=== PATIENT | male | born 1930 | race Two or more races ===

== ENCOUNTER → 2017-08-27 | Outpatient (CLI) | payer MEDICARE, OTHER ==
[~2017-08-27] MED LIST: ACIPHX20PT PO; ASPI-1441 PO; ASPI-715 PO; ASPI81TA94 PO; BETA1TAB PO; CEP500 PO; HOME OXYGEN; IBUP600T22 PO; LOR5 PO; LORA0.5P PO; METO25TA93 PO; NAPR220C12 PO; NIT4 SL; OCCUVITE; OMEG-11 PO; ONDA4TAB PO; ONDA4TAB9 PO; PHEN240S3 PO; PRE20 PO; RABE20TA33 PO; SIMV-42 PO; VIT1CAPS33 PO; VIT1CAPS34 PO
[2017-08-27 15:41] LABS: PLATELET COUNT, AUTOMATED 230 K/uL (150-450)
== END ==
LOC: LAB 14:36
PROVIDERS: ATTEND Dermatology MOHS-Micrographic Surgery
DX: L30.9 Dermatitis, unspecified (principal); Z79.899 Other long term (current) drug therapy
CPT/HCPCS: 36415; 82040; 82247; 82310; 82374; 82435; 82565; 82947; 84075; 84132; 84155; 84295; 84450; 84460; 84520; 85025

== ENCOUNTER 2017-12-10 10:05 | Emergency (ER) | payer MEDICARE, OTHER ==
--- NOTE | 2017-12-10 10:19 | ER Report ---
History and Physical Time Seen By MD: 10:17 Hx. of Stated Complaint: Patient reports feeling weak and dizzy anytime he tries to do anything. Also short of breath and "no strength". HPI/ROS CHIEF COMPLAINT: general weakness and dizziness HISTORY OF PRESENT ILLNESS: This is an 87 year old male. He dropped his off at the cancer center for a treatment, and had severe dizziness and weakness where he thought he might pass out. He has had this in the past, unknown cause. He has been feeling well today, no recent illness. He has no chest pain or palpitations. He has no vertigo. No shortness of breath or cough. He has no headache, no vision changes today, and no tinnitus or hearing changes. Dizziness worsens with position change. No fevers or chills. Allergies: Uncoded Allergies: metroprolol (Adverse Reaction, Unknown, 11/14/15) Home Meds Reported Medications Beta-Carotene(A) W-C & E/Min (ICAPS AREDS FORMULA TABLET) 1 Each Tablet.er, 1 EACH PO QDAY 03/01/17 Aspirin (ASPIRIN) 81 Mg Tab.chew, 81 MG PO QDAY, TAB.CHEW 03/01/17 Discontinued Reported Medications Rabeprazole Sodium (ACIPHEX) 20 Mg Tablet.dr, 20 MG PO PRN 08/10/17 Naproxen Sodium (ALEVE) Unknown Strength Capsule, 2 TAB PO QAM - PRN, CAPSULE 03/01/17 Reviewed Nurses Notes: Yes Hx Smoking: No Smoking Status: Unknown if Ever Smoked Exposure to Second Hand Smoke?: Yes Hx Substance Use Disorder: No Hx Alcohol Use: No Constitutional Vital Sign - Last 24 Hours 12/10/17 12/10/17 12/10/17 12/10/17 10:09 10:30 10:45 10:51 Temp 97.8 Pulse 70 60 59 58 Resp 16 30 32 B/P (MAP) 184/114 142/81 (101) Pulse Ox 93 96 96 O2 Delivery Room Air 12/10/17 12/10/17 12/10/17 12/10/17 10:53 10:57 11:00 11:30 Pulse 66 70 63 58 Resp 19 10 B/P (MAP) 148/89 (108) 158/99 (118) Pulse Ox 96 93 12/10/17 12/10/17 12/10/17 11:45 12:00 12:15 Pulse 62 60 60 Resp 13 18 Pulse Ox 91 92 93 Physical Exam General Appearance: The patient is alert. No acute distress. Eyes: Pupils are equal, round. Reactive to light. No pallor, injection or icterus. Extraocular movements are intact. No nystagmus. ENT: Mucous membranes are moist. Normal oral mucosa. Posterior oropharynx is normal. Normal tympanic membranes and canals. Neck: Supple and non tender. No lymphadenopathy. Respiratory: Lungs are clear to auscultation. There are no retractions or accessory muscle use. Cardiovascular: Regular rate and rhythm. No murmurs, gallops or rubs. Normal capillary refill. No edema. No carotid bruits. Gastrointestinal: Abdomen is soft and non tender. Nondistended. No rebound or guarding. No masses or organomegaly. Normal active bowel sounds. No costovertebral angle tenderness with percussion. Neurological: Alert and oriented x3. Cranial nerves II through XII show no acute deficits on my exam. No focal neurologic deficits in the extremities. Skin: Warm and dry. No rashes. Musculoskeletal: Extremities are nontender. Full range of motion. No tenderness in palpation of the cervical, thoracic and lumbar spine. DIFFERENTIAL DIAGNOSIS: After history and physical exam, differential diagnosis was considered for nonspecific weakness and dizziness. Medical Decision Making Data Points Result Diagram: 12/10/17 1024 12/10/17 1024 Laboratory Hematology Test 12/10/17 10:24 Red Blood Count 5.69 M/uL (4.00-5.60) Mean Corpuscular Volume 91.5 fL (80.0-96.0) Mean Corpuscular Hemoglobin 31.2 pg (26.0-33.0) Mean Corpuscular Hemoglobin Concent 34.1 g/dL (32.0-36.0) Red Cell Distribution Width 13.4 % (11.5-14.5) Mean Platelet Volume 8.9 fL (7.2-11.1) Neutrophils (%) (Auto) 67.0 % (39.4-72.5) Lymphocytes (%) (Auto) 19.7 % (17.6-49.6) Monocytes (%) (Auto) 10.7 % (4.1-12.4) Eosinophils (%) (Auto) 2.2 % (0.4-6.7) Basophils (%) (Auto) 0.4 % (0.3-1.4) Nucleated RBC Relative Count (auto) 0.5 /100WBC Neutrophils # (Auto) 4.6 K/uL (2.0-7.4) Lymphocytes # (Auto) 1.3 K/uL (1.3-3.6) Monocytes # (Auto) 0.7 K/uL (0.3-1.0) Eosinophils # (Auto) 0.2 K/uL (0.0-0.5) Basophils # (Auto) 0.0 K/uL (0.0-0.1) Nucleated RBC Absolute Count (auto) 0.03 K/uL Peripheral Blood Smear No Y/N Sodium Level 139 mmol/L (137-145) Potassium Level 4.4 mmol/L (3.5-5.0) Chloride Level 103 mmol/L (98-107) Carbon Dioxide Level 22 mmol/L (22-30) Blood Urea Nitrogen 22 mg/dl (9-21) Creatinine 1.00 mg/dl (0.66-1.25) Glomerular Filtration Rate Calc > 60.0 Random Glucose 145 mg/dl (75-110) Calcium Level 9.4 mg/dl (8.4-10.2) Magnesium Level 2.2 mg/dl (1.7-2.2) Total Bilirubin 0.9 mg/dl (0.2-1.3) Aspartate Amino Transf (AST/SGOT) 40 U/L (0-35) Alanine Aminotransferase (ALT/SGPT) 60 U/L (0-56) Alkaline Phosphatase 72 U/L (0-126) Troponin I < 0.012 ng/ml B-Type Natriuretic Peptide < 5 pg/ml (0-100) Total Protein 6.7 gm/dl (6.3-8.2) Albumin 4.0 g/dl (3.5-5.0) Chemistry Test 12/10/17 10:24 White Blood Count 6.9 k/uL (4.5-11.0) Red Blood Count 5.69 M/uL (4.00-5.60) Hemoglobin 17.8 g/dL (14.0-18.0) Hematocrit 52.1 % (42.0-52.0) Mean Corpuscular Volume 91.5 fL (80.0-96.0) Mean Corpuscular Hemoglobin 31.2 pg (26.0-33.0) Mean Corpuscular Hemoglobin Concent 34.1 g/dL (32.0-36.0) Red Cell Distribution Width 13.4 % (11.5-14.5) Platelet Count 199 K/uL (150-450) Mean Platelet Volume 8.9 fL (7.2-11.1) Neutrophils (%) (Auto) 67.0 % (39.4-72.5) Lymphocytes (%) (Auto) 19.7 % (17.6-49.6) Monocytes (%) (Auto) 10.7 % (4.1-12.4) Eosinophils (%) (Auto) 2.2 % (0.4-6.7) Basophils (%) (Auto) 0.4 % (0.3-1.4) Nucleated RBC Relative Count (auto) 0.5 /100WBC Neutrophils # (Auto) 4.6 K/uL (2.0-7.4) Lymphocytes # (Auto) 1.3 K/uL (1.3-3.6) Monocytes # (Auto) 0.7 K/uL (0.3-1.0) Eosinophils # (Auto) 0.2 K/uL (0.0-0.5) Basophils # (Auto) 0.0 K/uL (0.0-0.1) Nucleated RBC Absolute Count (auto) 0.03 K/uL Peripheral Blood Smear No Y/N Glomerular Filtration Rate Calc > 60.0 Calcium Level 9.4 mg/dl (8.4-10.2) Magnesium Level 2.2 mg/dl (1.7-2.2) Total Bilirubin 0.9 mg/dl (0.2-1.3) Aspartate Amino Transf (AST/SGOT) 40 U/L (0-35) Alanine Aminotransferase (ALT/SGPT) 60 U/L (0-56) Alkaline Phosphatase 72 U/L (0-126) Troponin I < 0.012 ng/ml B-Type Natriuretic Peptide < 5 pg/ml (0-100) Total Protein 6.7 gm/dl (6.3-8.2) Albumin 4.0 g/dl (3.5-5.0) EKG/Imaging EKG Interpretation 12 lead EKG: Rhythm: normal sinus rhythm, rate 64 [place]: normal QRS: normal ST segments: normal Imaging Exam type: CHEST PA AND LAT History: Weakness, elevated blood pressure and shortness of breath Comparison: January 19, 2017. Findings: The lungs are free of acute effusions, infiltrates or edema. There is no evidence of pneumothorax or pneumomediastinum. The cardiac silhouette is normal in size. The trachea is in midline. IMPRESSION: 1. No acute cardiac pulmonary process is seen Report Dictated By: Ana Price MD at 12/10/2017 11:34 AM EXAMINATION: CT head without IV contrast HISTORY: Weakness, elevated blood pressure. COMPARISON: CT head from 01/19/2017. TECHNIQUE: Contiguous axial images were obtained from the skull base to the vertex without intravenous contrast. Sagittal and coronal reformatted images are also submitted. One of the following dose optimization techniques was utilized in the performance of this exam: Automated exposure control; adjustment of the mA and/ or kV according to the patient's size; or use of an iterative reconstruction technique. Specific details can be referenced in the facility's radiology CT exam operational policy. FINDINGS: Brain volume: Mild generalized atrophy with associated concordant prominence of the ventricular system. Ventricles: Normal. Acute ischemic changes: None. Hemorrhage: None. Masses/edema: None. Cain-white: Negative. White matter: A few hypodensities in the deep white matter bilaterally. Vessels: Calcified plaque of both carotid siphons. Extra-axial: Negative. Calvarium/scalp: Negative. Skull base/visualized face: Negative. Visualized sinuses/orbits: Previous lens surgery on the left. IMPRESSION: 1. No intracranial mass lesion or hemorrhage. No CT evidence of acute infarct. 2. Mild nonspecific white matter disease is suspicious for chronic small vessel ischemia, and is unchanged. Report Dictated By: Martha Barnett MD at 12/10/2017 11:29 AM ED Course/Re-evaluation Clinical Indication for ER IV: Hydration, IV Access ED Course Labs and imaging and EKG unremarkable. Discussed all of this with the patient and family. See instructions below. Decision to Disposition Date: Dec 10, 2017 Decision to Disposition Time: 12:24 Depart Departure Latest Vital Signs Vital Signs Date Time Temp Pulse Resp B/P (MAP) Pulse Ox O2 Delivery O2 Flow Rate FiO2 12/10/17 12:15 60 93 12/10/17 12:00 18 12/10/17 10:57 158/99 (118) 12/10/17 10:09 97.8 Room Air Impression: Primary Impression: Weakness generalized Condition: Improved Disposition: HOME OR SELF-CARE Patient Instructions: Weakness (ED) Additional Instructions: We do not know why you are getting episodes of weakness and lightheadedness. When this happens, please try and drink a small bottle of Gatorade or other electrolyte drink to see if this helps. Follow-up with Dr. Snell about blood pressure. Follow-up with your school nurse for further questions regarding your heart. MARYLIN LOO MD Dec 10, 2017 10:18
--- NOTE | 2017-12-10 10:55 | EKG ---
[place] [facility] [place] NAME: JOSE ENRIQUE MOORE : [id number] MR: [id number] V: [id number] EXAM DATE: ORDERING PHYSICIAN: MARYLIN LOO TECHNOLOGIST: VIJI Martinez Reason : SOB Blood Pressure : / mmHG Vent. Rate : 064 BPM Atrial Rate : 064 BPM P-R Int : 164 ms QRS Dur : 086 ms QT Int : 408 ms P-R-T Axes : 046 005 029 degrees QTc Int : 420 ms Sinus rhythm Possible left atrial enlargement Possible previous inferior infarct Unusual R wave progression through anterior leads Nonspecific ST findings Abnormal ECG Confirmed by EV RAYA ([id number]) on 12/10/2017 12:53:33 PM Referred By: EZE Confirmed By:EV RAYA
[2017-12-10 10:57] VITALS: BP 158/99
[2017-12-10 10:58] LABS: PLATELET COUNT, AUTOMATED 199 K/uL (150-450)
--- NOTE | 2017-12-10 11:35 | RADIOLOGY IMAGING REPORT ---
FACILITY: [facility] - [place] PATIENT NAME: Murray Azevedo : 1930 MR: [id number] V: [id number] EXAM DATE: ORDERING PHYSICIAN: MARYLIN LOO TECHNOLOGIST: Location: [facility] [place] Patient: Murray Azevedo : 1930 Visit/Account:[id number] Date of Sevice: 12/10/2017 EXAMINATION: CT head without IV contrast HISTORY: Weakness, elevated blood pressure. COMPARISON: CT head from 01/19/2017. TECHNIQUE: Contiguous axial images were obtained from the skull base to the vertex without intraven ous contrast. Sagittal and coronal reformatted images are also submitted. One of the following dose optimization techniques was utilized in the performance of this exam: Autom ated exposure control; adjustment of the mA and/or kV according to the patient's size; or use of an i terative reconstruction technique. Specific details can be referenced in the facility's radiology C T exam operational policy. FINDINGS: Brain volume: Mild generalized atrophy with associated concordant prominence of the ventricular syst em. Ventricles: Normal. Acute ischemic changes: None. Hemorrhage: None. Masses/edema: None. Cain-white: Negative. White matter: A few hypodensities in the deep white matter bilaterally. Vessels: Calcified plaque of both carotid siphons. Extra-axial: Negative. Calvarium/scalp: Negative. Skull base/visualized face: Negative. Visualized sinuses/orbits: Previous lens surgery on the left. IMPRESSION: 1. No intracranial mass lesion or hemorrhage. No CT evidence of acute infarct. 2. Mild nonspecific white matter disease is suspicious for chronic small vessel ischemia, and is unc hanged. Report Dictated By: Martha Barnett MD at 12/10/2017 11:29 AM Report E-Signed By: Martha Barnett MD at 12/10/2017 11:31 AM WSN:[id number]
--- NOTE | 2017-12-10 11:40 | RADIOLOGY IMAGING REPORT ---
FACILITY: [facility] - [place] PATIENT NAME: Murray Azevedo : 1930 MR: [id number] V: [id number] EXAM DATE: ORDERING PHYSICIAN: MARYLIN LOO TECHNOLOGIST: [facility] Patient: Murray Azevedo : 1930 Visit/Account:[id number] Date of Sevice: 12/10/2017 Exam type: CHEST PA AND LAT History: Weakness, elevated blood pressure and shortness of breath Comparison: January 19, 2017. Findings: The lungs are free of acute effusions, infiltrates or edema. There is no evidence of pneumothorax or pneumomediastinum. The cardiac silhouette is normal in size. The trachea is in midline. IMPRESSION: 1. No acute cardiac pulmonary process is seen Report Dictated By: Ana Price MD at 12/10/2017 11:34 AM Report E-Signed By: Ana Price MD at 12/10/2017 11:35 AM WSN:[id number]
== END 2017-12-10 12:39 | disposition home or self-care (01) ==
LOC: ER 10:06
DX: R53.1 Weakness (principal)
CPT/HCPCS: 70450; 71046; 82040; 82247; 82310; 82374; 82435; 82565; 82947; 83735; 83880; 84075; 84132; 84155; 84295; 84450; 84460; 84484; 84520; 85025; 93005; 99284

== ENCOUNTER → 2018-01-24 | Outpatient (CLI) | payer MEDICARE, OTHER ==
[2018-01-24 07:36] LABS: PLATELET COUNT, AUTOMATED 199 K/uL (150-450)
[2018-01-24 07:54] LABS: LDL CHOLESTEROL 87 mg/dl
== END ==
LOC: LAB 07:18
PROVIDERS: ATTEND Internal Medicine
DX: Z12.5 Encounter for screening for malignant neoplasm of prostate (principal); R53.1 Weakness; E78.1 Pure hyperglyceridemia; I10 Essential (primary) hypertension; R73.9 Hyperglycemia, unspecified
CPT/HCPCS: 36415; 81001; 83036; 84443; 85025; G0103; 82040; 82247; 82310; 82374; 82435; 82465; 82565; 82947; 83718; 84075; 84132; 84153; 84155; 84295; 84450; 84460; 84478; 84520

== ENCOUNTER 2018-02-12 07:32 | Emergency (ER) | payer MEDICARE, OTHER ==
--- NOTE | 2018-02-12 07:36 | ER Report ---
History and Physical Time Seen By MD: 07:35 HPI/ROS CHIEF COMPLAINT: chest pain HISTORY OF PRESENT ILLNESS: Patient is an 87-year-old male who presents to the emergency department with complaint of left-sided chest pain that has been constant since its onset yesterday afternoon. Patient gets pain with change in position. He feels the pain to the left side of the chest and wraps around towards the back. While movement can reproduce the symptoms he is unable to reproduce to systems with direct pressure over the area. He does report some shortness of breath and pain with inspiration. He denies any fevers or chills or productive cough. He has no admitted history for VT in the past states his only medication that he takes his daily aspirin. He denies hypertension, hypercholesterol he is a nonsmoker. REVIEW OF SYSTEMS: Constitutional: No fever, no chills. Eyes: No discharge. ENT: No sore throat. Cardiovascular: Chest pain no palpitations Respiratory: No cough, shortness of breath Gastrointestinal: No abdominal pain, no vomiting. Genitourinary: No hematuria. Musculoskeletal: No back pain. Skin: No rashes. Neurological: No headache. Allergies: Uncoded Allergies: metroprolol (Adverse Reaction, Unknown, 11/14/15) Home Meds Reported Medications Beta-Carotene(A) W-C & E/Min (ICAPS AREDS FORMULA TABLET) 1 Each Tablet.er, 1 EACH PO QDAY 03/01/17 Aspirin (ASPIRIN) 81 Mg Tab.chew, 81 MG PO QDAY, TAB.CHEW 03/01/17 Past Medical/Surgical History Past medical history for hyperlipidemia, hypertension, hypertriglyceridemia, left inguinal hernia repair, history of chest wall pain. Hx Smoking: No Smoking Status: Former Smoker Exposure to Second Hand Smoke?: No Hx Substance Use Disorder: No Hx Alcohol Use: No Constitutional Vital Sign - Last 24 Hours 02/12/18 02/12/18 02/12/18 02/12/18 07:35 07:35 07:47 08:00 Pulse 75 67 Resp 28 28 B/P (MAP) 200/95 (130) 200/95 143/90 (107) Pulse Ox 93 95 02/12/18 02/12/18 02/12/18 02/12/18 08:02 08:07 08:20 08:22 Pulse 64 64 ??? Resp 8 11 B/P (MAP) ???/??? (5425) Pulse Ox 93 95 02/12/18 02/12/18 02/12/18 02/12/18 08:37 08:40 08:50 08:50 Pulse 68 Resp 13 B/P (MAP) 132/78 (96) Pulse Ox 86 86 O2 Delivery Room Air O2 Flow Rate 1.0 02/12/18 02/12/18 02/12/18 08:52 09:00 09:07 Pulse 62 61 Resp 10 15 B/P (MAP) 140/86 (104) Pulse Ox 95 95 Physical Exam General Appearance: The patient is alert, has no immediate need for airway protection and no signs of toxicity. Eyes: Pupils equal and round no pallor or injection. ENT, Mouth: Mucous membranes are moist. Respiratory: There are no retractions, lungs are clear to auscultation. Cardiovascular: Regular rate and rhythm. Gastrointestinal: Abdomen is soft and non tender, no masses, bowel sounds normal. Neurological: Awake and alert Skin: Warm and dry, no rashes. Musculoskeletal: Neck is supple non tender. Extremities are nontender, nonswollen and have full range of motion. Medical Decision Making Data Points Result Diagram: 02/12/18 0746 02/12/18 0746 Laboratory Hematology Test 02/12/18 07:46 02/12/18 09:50 Red Blood Count 5.58 M/uL (4.00-5.60) Mean Corpuscular Volume 92.2 fL (80.0-96.0) Mean Corpuscular Hemoglobin 31.6 pg (26.0-33.0) Mean Corpuscular Hemoglobin Concent 34.3 g/dL (32.0-36.0) Red Cell Distribution Width 13.8 % (11.5-14.5) Mean Platelet Volume 8.9 fL (7.2-11.1) Neutrophils (%) (Auto) 80.6 % (39.4-72.5) Lymphocytes (%) (Auto) 7.8 % (17.6-49.6) Monocytes (%) (Auto) 10.2 % (4.1-12.4) Eosinophils (%) (Auto) 0.8 % (0.4-6.7) Basophils (%) (Auto) 0.6 % (0.3-1.4) Nucleated RBC Relative Count (auto) 0.1 /100WBC Neutrophils # (Auto) 8.4 K/uL (2.0-7.4) Lymphocytes # (Auto) 0.8 K/uL (1.3-3.6) Monocytes # (Auto) 1.1 K/uL (0.3-1.0) Eosinophils # (Auto) 0.1 K/uL (0.0-0.5) Basophils # (Auto) 0.1 K/uL (0.0-0.1) Nucleated RBC Absolute Count (auto) 0.01 K/uL Peripheral Blood Smear Yes Y/N Prothrombin Time 13.1 seconds (12.0-14.4) Prothromb Time International Ratio 0.99 Activated Partial Thromboplast Time 27 seconds (23-35) D-Dimer Quantitative (PE/DVT) 0.30 ug/ml (0-0.50) Sodium Level 138 mmol/L (137-145) Potassium Level 4.1 mmol/L (3.5-5.0) Chloride Level 101 mmol/L (98-107) Carbon Dioxide Level 29 mmol/L (22-30) Blood Urea Nitrogen 23 mg/dl (9-21) Creatinine 1.20 mg/dl (0.66-1.25) Glomerular Filtration Rate Calc 57.4 Random Glucose 143 mg/dl (75-110) Calcium Level 8.9 mg/dl (8.4-10.2) Total Bilirubin 1.0 mg/dl (0.2-1.3) Aspartate Amino Transf (AST/SGOT) 33 U/L (0-35) Alanine Aminotransferase (ALT/SGPT) 51 U/L (0-56) Alkaline Phosphatase 83 U/L (0-126) B-Type Natriuretic Peptide < 5 pg/ml (0-100) Total Protein 6.7 g/dl (6.3-8.2) Albumin 4.0 g/dl (3.5-5.0) Troponin I < 0.012 ng/ml Chemistry Test 02/12/18 07:46 02/12/18 09:50 White Blood Count 10.4 k/uL (4.5-11.0) Red Blood Count 5.58 M/uL (4.00-5.60) Hemoglobin 17.7 g/dL (14.0-18.0) Hematocrit 51.4 % (42.0-52.0) Mean Corpuscular Volume 92.2 fL (80.0-96.0) Mean Corpuscular Hemoglobin 31.6 pg (26.0-33.0) Mean Corpuscular Hemoglobin Concent 34.3 g/dL (32.0-36.0) Red Cell Distribution Width 13.8 % (11.5-14.5) Platelet Count 210 K/uL (150-450) Mean Platelet Volume 8.9 fL (7.2-11.1) Neutrophils (%) (Auto) 80.6 % (39.4-72.5) Lymphocytes (%) (Auto) 7.8 % (17.6-49.6) Monocytes (%) (Auto) 10.2 % (4.1-12.4) Eosinophils (%) (Auto) 0.8 % (0.4-6.7) Basophils (%) (Auto) 0.6 % (0.3-1.4) Nucleated RBC Relative Count (auto) 0.1 /100WBC Neutrophils # (Auto) 8.4 K/uL (2.0-7.4) Lymphocytes # (Auto) 0.8 K/uL (1.3-3.6) Monocytes # (Auto) 1.1 K/uL (0.3-1.0) Eosinophils # (Auto) 0.1 K/uL (0.0-0.5) Basophils # (Auto) 0.1 K/uL (0.0-0.1) Nucleated RBC Absolute Count (auto) 0.01 K/uL Peripheral Blood Smear Yes Y/N Prothrombin Time 13.1 seconds (12.0-14.4) Prothromb Time International Ratio 0.99 Activated Partial Thromboplast Time 27 seconds (23-35) D-Dimer Quantitative (PE/DVT) 0.30 ug/ml (0-0.50) Glomerular Filtration Rate Calc 57.4 Calcium Level 8.9 mg/dl (8.4-10.2) Total Bilirubin 1.0 mg/dl (0.2-1.3) Aspartate Amino Transf (AST/SGOT) 33 U/L (0-35) Alanine Aminotransferase (ALT/SGPT) 51 U/L (0-56) Alkaline Phosphatase 83 U/L (0-126) B-Type Natriuretic Peptide < 5 pg/ml (0-100) Total Protein 6.7 g/dl (6.3-8.2) Albumin 4.0 g/dl (3.5-5.0) Troponin I < 0.012 ng/ml Coagulation Test 02/12/18 07:46 Prothrombin Time 13.1 seconds Prothromb Time International Ratio 0.99 Activated Partial Thromboplast Time 27 seconds D-Dimer Quantitative (PE/DVT) 0.30 ug/ml EKG/Imaging EKG Interpretation EKG shows normal sinus rhythm with ventricular rate of 66 bpm. There are Q waves inferiorly suggesting possible old infarct. This EKG was compared to one from 12/10/2017 and there are no changes Monitor Interpretation: Normal Sinus Rhythm Imaging FACILITY: [facility] - [place] PATIENT NAME: Murray Azevedo : 1930 MR: [id number] V: [id number] EXAM DATE: ORDERING PHYSICIAN: WAGNER VAN TECHNOLOGIST: Location: [facility] Patient: Murray Azevedo : 1930 Visit/Account:[id number] Date of Sevice: 02/12/2018 CHEST PA AND LAT HISTORY: Chest pain. COMPARISON: 12/10/2017. FINDINGS: Lines/tubes: None. Lungs/pleura: Negative. Heart: Negative. Mediastinum: Negative. Bony structures/body wall: Negative. IMPRESSION: No acute cardiopulmonary process. Report Dictated By: Prosper Childs MD at 02/12/2018 8:36 AM Report E-Signed By: Prosper Childs MD at 02/12/2018 8:38 AM WSN:[id number] Course/Re-evaluation Clinical Indication for ER IV: Hydration, IV Access ED Course Plan at this time will be cardiac workup along with d-dimer. We'll give the patient aspirin also we'll give IV Toradol patient's symptoms seem more musculoskeletal however he does have some pleuritic type symptoms. Re-evaluation 02/12/2018 10:28:57 am repeat troponin is negative will discharge home with diagnosis of musculoskeletal chest wall pain. Decision to Disposition Date: Feb 12, 2018 Decision to Disposition Time: 10:29 Depart Departure Latest Vital Signs Vital Signs Date Time Temp Pulse Resp B/P (MAP) Pulse Ox O2 Delivery O2 Flow Rate FiO2 02/12/18 09:07 61 15 95 02/12/18 09:00 140/86 (104) 02/12/18 08:50 Room Air 02/12/18 08:50 1.0 Impression: Primary Impression: Chest wall pain Condition: Improved Disposition: HOME OR SELF-CARE Referrals: HERBERT BUTLER MD (PCP) 2 Days if symptoms persist New Scripts Diclofenac Sodium (VOLTAREN-XR) 100 Mg Tab.er.24h 100 MG PO QDAY for PAIN for 7 Days, #7 TAB 0 Refills Prov: WAGNER VAN MD 02/12/18 Patient Instructions: Chest Wall Pain (GEN) WAGNER VAN MD Feb 12, 2018 07:36
[2018-02-12] MEDS ORDERED: ASPIRIN 81 MG CHEW PO ONE (07:40)
[2018-02-12] MEDS ORDERED: KETOROLAC 15 MG/ML VIAL IVP ONE (07:50)
[2018-02-12 08:00] LABS: PLATELET COUNT, AUTOMATED 210 K/uL (150-450)
[2018-02-12 08:11] LABS: INR 0.99
--- NOTE | 2018-02-12 08:16 | EKG ---
FACILITY: [facility] PATIENT NAME: JOSE ENRIQUE MOORE : [id number] MR: [id number] V: [id number] EXAM DATE: ORDERING PHYSICIAN: WAGNER VAN TECHNOLOGIST: VIJI Martinez Reason : CARDIAC Blood Pressure : / mmHG Vent. 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
--- NOTE | 2018-02-12 08:41 | RADIOLOGY IMAGING REPORT ---
FAC[place]: [facility] [place] PATIENT NAME: Murray Azevedo : 1930 MR: [id number] V: [id number] EXAM DATE: ORDERING PHYSICIAN: WAGNER VAN TECHNOLOGIST: Location: [facility] - [place] Patient: Murray Azevedo : 1930 Visit/Account:[id number] Date of Sevice: 02/12/2018 CHEST PA AND LAT HISTORY: Chest pain. COMPARISON: 12/10/2017. FINDINGS: Lines/tubes: None. Lungs/pleura: Negative. Heart: Negative. Mediastinum: Negative. Bony structures/body wall: Negative. IMPRESSION: No acute cardiopulmonary process. Report Dictated By: Prosper Childs MD at 02/12/2018 8:36 AM Report E-Signed By: Prosper Childs MD at 02/12/2018 8:38 AM WSN:[id number]
[2018-02-12] MEDS ORDERED: DICL100T54 PO (10:30)
[2018-02-12 10:33] VITALS: BP 133/76
== END 2018-02-12 10:40 | disposition home or self-care (01) ==
LOC: ER 07:48
DX: R07.89 Other chest pain (principal)
CPT/HCPCS: 36415; 71046; 83880; 84484; 85025; 85379; 85610; 85730; 93005; 96374; 99284; A9270; J1885; 82040; 82247; 82310; 82374; 82435; 82565; 82947; 84075; 84132; 84155; 84295; 84450; 84460; 84520

== ENCOUNTER → 2019-03-27 | Outpatient (CLI) | payer MEDICARE, OTHER ==
[~2019-03-27] MED LIST changes: +DICL100T54 PO; +OCUVITE SOFTGE1 EACH PO; -VIT1CAPS33 PO
[2019-03-27 09:44] LABS: PLATELET COUNT, AUTOMATED 234 K/uL (150-450)
== END ==
LOC: LAB 09:26
PROVIDERS: ATTEND Family Medicine
DX: I10 Essential (primary) hypertension (principal)
CPT/HCPCS: 36415; 82310; 82374; 82435; 82565; 82947; 84132; 84295; 84520; 85025